=== PATIENT | male | born 1950 | race Caucasian/White ===

== ENCOUNTER 2016-07-20 19:04 | Emergency (ER) | payer OTHER, MEDICARE ==
[~2016-07-20] VITALS: Ht 177.8 cm; Wt 161.0 kg
[2016-07-20 19:05] VITALS: BP 163/89; PULSE 92; RESP 20; TEMP 97.6; O2SAT 94
[2016-07-20] MEDS ORDERED: HYDROcodone/ACETAMIN 10-325 MG TAB PO ONE (21:00)
[2016-07-20 22:08] VITALS: BP 153/88; PULSE 90; RESP 19; TEMP 97.6; O2SAT 95
== END 2016-07-20 22:08 | disposition home or self-care (01) ==
LOC: SED 19:04
DX: S22.32XA Fracture of one rib, left side, initial encounter for closed fracture (principal); R03.0 Elevated blood-pressure reading, without diagnosis of hypertension; V29.9XXA Motorcycle rider (driver) (passenger) injured in unspecified traffic accident, initial encounter; Y93.89 Activity, other specified; Y99.8 Other external cause status; Y92.89 Other specified places as the place of occurrence of the external cause
CPT/HCPCS: 71010; 71100; 99284

== ENCOUNTER 2017-01-21 05:24 | Inpatient (IN) | payer OTHER, MEDICARE ==
[2017-01-18 10:11] LABS: BILIRUBIN,URINE NEGATIVE (NEGATIVE); BLOOD, URINE NEGATIVE (NEGATIVE); CLARITY/URINE SL HAZY (CLEAR); COLOR,URINE YELLOW (YELLOW); GLUCOSE,URINE NEGATIVE (NEGATIVE); KETONES,URINE NEGATIVE (NEGATIVE); LEUKOCYTE ESTERASE ,URINE TRACE (NEGATIVE); NITRITE, URINE NEGATIVE (NEGATIVE); PROTEIN URINE NEGATIVE (NEGATIVE)
[2017-01-18 10:22] LABS: PROTHROMBIN TIME 10.7 SECS (9.5-12.5)
[2017-01-18 10:23] LABS: BASOPHILS % (AUTO) 0.7 % (0.0-2.0); EOSINOPHILS # (AUTO) 0.1 K/uL (0.0-0.4); EOSINOPHILS % (AUTO) 2.7 % (0.0-4.0); HEMATOCRIT 45.6 % (36-54); LYMPHOCYTES # (AUTO) 1.4 K/uL (1.0-5.5); LYMPHOCYTES % (AUTO) 27.3 % (20.5-51.5); MEAN CORPUSCULAR HEMOGLOBIN 31 pg (27-31); MEAN CORPUSCULAR HGB CONC 33 % (32-36); MEAN CORPUSCULAR VOLUME 95 fL (79.0-98.0); MONOCYTES # (AUTO) 0.5 K/uL (0.0-1.0); MONOCYTES % (AUTO) 9.2 % (1.7-9.3); NEUTROPHILS % (AUTO) 60.1 % (40.0-70.0); PLATELET COUNT (AUTO) 193 K/uL (130-430)
[2017-01-18 10:24] LABS: CALCIUM 9.4 mg/dL (8.4-11.0); POTASSIUM 3.5 mmol/L (3.5-5.1)
[2017-01-18 10:25] LABS: CREATININE 0.9 mg/dL (0.55-1.30)
[2017-01-18 11:02] LABS: BACTERIA,URINE FEW /HPF (None Seen); RBC,URINE 0-3 /HPF (0-3); WBC,URINE 0-3 /HPF (0-3)
[2017-01-18 11:03] LABS: CALCIUM OXALATE CRYSTALS,UR 0-10 /HPF (None Seen); MUCUS,URINE None Seen /LPF (None Seen)
[~2017-01-21] VITALS: Ht 180.3 cm; Wt 129.3 kg
[2017-01-21] MEDS ORDERED: CEFAZOLIN SOD 2 GM in D5W 50 ML IV ONE (06:00)
[2017-01-21] MEDS ORDERED: CEFAZOLIN 2 GM IVPB PREMIX 50 ML IV ONE (06:01)
[2017-01-21] MEDS ORDERED: ZOLP10TA2 PO (06:39)
[2017-01-21] MEDS ORDERED: PRAV40TA PO (06:39)
[2017-01-21] MEDS ORDERED: FINA5TAB3 PO (06:39)
[2017-01-21] MEDS ORDERED: ZALE10CA PO (06:39)
[2017-01-21] MEDS ORDERED: TRAZ-126 PO (06:39)
[2017-01-21] MEDS ORDERED: POLYMYXIN 500,000/BACIT.10,000 UNITS in NS IRR 1 L IR ONE (07:10)
[2017-01-21] MEDS ORDERED: LR 1,000 ML IV SCH (07:36)
[2017-01-21] MEDS ORDERED: NALBUPHINE HCL 10 MG/ML AMP IVP PRN (07:45)
[2017-01-21] MEDS ORDERED: HYDROmorphone 2 MG/ML VIAL IVP PRN ×2 (07:45)
[2017-01-21] MEDS ORDERED: MEPERIDINE HCL/PF 25 MG/ML DISP.SYRIN IVP PRN ×2 (07:45)
[2017-01-21] MEDS ORDERED: ONDANSETRON HCL 4 MG/2 ML VIAL IVP PRN ×2 (07:45)
[2017-01-21] MEDS ORDERED: HYDROmorphone 1 MG INJ. 1 MG/ML AMPUL IVP PRN ×2 (07:45→11:58)
[2017-01-21] MEDS ORDERED: DIPHENHYDRAMINE INJ 50 MG/ML VIAL IVP PRN (07:45)
[2017-01-21] MEDS ORDERED: KETOROLAC TROMETHAMINE 30 MG VIAL ONE (08:14)
[2017-01-21] MEDS ORDERED: ROPIVACAINE 0.2% 100 ML ONE ×2 (09:29→22:00)
[2017-01-21] MEDS ORDERED: D5/0.45 NS 1,000 ML IV ONE (10:03)
[2017-01-21] MEDS ORDERED: BISACODYL 10 MG/SUPPOSITORY RC PRN (10:15)
[2017-01-21] MEDS ORDERED: ACETAMINOPHEN 325 MG TABLET PO PRN (10:15)
[2017-01-21] MEDS: HYDROmorphone 1 MG INJ. 1 MG/ML AMPUL IVP PRN ×4 (10:15→10:35)
[2017-01-21] MEDS ORDERED: HYDROmorphone 1 MG INJ. 1 MG/ML AMPUL ONE ×2 (10:23→10:47)
[2017-01-21 11:30] VITALS: BP_SYST 134
--- NOTE | 2017-01-21 11:30 | NUR ---
Patient Received Awake, alert and oriented x4, states his pain level is rising, explained that medications are being verified by pharmacy and that as soon as medications are available they will be administered, patient and both verbalized understanding. Assessment complete, IV site is patent and infusing well. Neurovascular check: patient is able to move toes bilaterally, sensation felt on bilateral lower extremities, pedal pulses present, strong, and normal, capillary refill <3 seconds, patient denies numbness or tingling. SCD in place on right lower extremity, explained the purpose to this, patient verbalized understanding. Educated immersion metalcleaner light system and to call for any assistance, patient verbalized understanding, bed in lowest position, three side rails up, bed alarm on, fall and aspiration precautions in place. Addendum: 01/21/17 at 1628 by Willis Garcia RN Li catheter also in place, draining to gravity.
[2017-01-21 11:38] VITALS: BP_SYST 134
[2017-01-21] MEDS: ROPIVACAINE 0.2% 100 ML INJ SCH ×2 (12:00→22:00)
--- NOTE | 2017-01-21 12:10 | NUR ---
CON[facility]ULT [facility]DER [phone] S/W HUANG EXCHANGE @ 1210 Addendum: 01/22/17 at 0558 by Abelino Vega [place]/ cancelled consult s.w:shell
[2017-01-21] MEDS: MORPHINE SULFATE 10 MG/ML VIAL IM PRN ×2 (12:41→22:53)
--- NOTE | 2017-01-21 12:45 | NUR ---
RN Rounds/Pain medication Educated the patient on pain medication and potential side effects, and frequency, patient verbalized understanding and tolerated well at this time, no other needs at this time, bed in lowest position, three side rails up, bed alarm on, call light within reach, fall and aspiration precautions in place, will continue to monitor.
[2017-01-21 14:08] VITALS: BP_SYST 134
[2017-01-21] MEDS: CEFAZOLIN 1 GM IVPB PREMIX 50 ML IV SCH ×2 (15:10→21:43)
--- NOTE | 2017-01-21 15:10 | NUR ---
RN Rounds/Medication patient resting in bed, states mild but tolerable pain level at this time. Educated on need for IV antibiotics, IV site is patent and infusing well, no other needs at this time, bed in lowest position, three side rails up, bed alarm on, call light within reach, fall and aspiration precautions in place. Surgical dressing is in place over left knee, clean, dry and intact. Hemovac in place on left knee, draining to suction, will continue to monitor.
[2017-01-21 15:42] VITALS: BP_SYST 131
[2017-01-21] MEDS: RIVAROXABAN 10 MG TABLET PO SCH (17:01)
[2017-01-21] MEDS: HYDROcodone/ACETAMIN 7.5-325 MG TAB PO PRN (17:14)
--- NOTE | 2017-01-21 17:15 | NUR ---
RN Rounds/Pain Medication Patient resting in bed, awake, stated moderate pain level, educated on xarelto and pain medication and potential side effects, patient verbalized understanding and tolerated well. Emptied hemovac at this time, 220ml out, red drainage. No other needs at this time, bed in lowest position, three side rails up, bed alarm on, call light within reach.
--- NOTE | 2017-01-21 18:26 | NUR ---
Closing Note Patient resting in bed, awake, denies pain, eating dinner at this time, all needs met, no other needs at this time, bed in lowest position, three side rails up, bed alarm on, call light within reach, fall and aspiration precautions in place, will endorse report to NOC shift nurse.
--- NOTE | 2017-01-21 19:40 | NUR ---
INITIAL NOTE received report from day Nurse. Patient in bed, alert and oriented. Patient in pleasant mood. Denies pain. Hemovac red drainage, pt has femoral block, IV left arm intact. FC draining cyu. Safety precautions in place. call light within reach. Continue to monitor
[2017-01-21 20:22] VITALS: BP_SYST 103
--- NOTE | 2017-01-21 20:27 | NUR ---
page dr. parnell- dr. frazier traditional maori health practitioner. spoke to md. ask for order [id number] and trazadone 100mg md. agree. ask also to change consult for dr. hutson instead of dr. payton per pt request and consult for social work administrator. md agree. stated if dr. hutson didn't see pt markos. then dr. payton will be the consult.
[2017-01-21] MEDS: traZODone HCL 50 MG TABLET (DESYREL) PO SCH (20:44)
[2017-01-21] MEDS: ZOLPIDEM TARTRATE 5 MG TABLET PO PRN (21:43)
--- NOTE | 2017-01-21 22:07 | NUR ---
Medication note Pt antibiotic IV administered. No adverse effects noted. IV patent and surrounding area is intact. Pt denies pain at this time. Continue to monitor
--- NOTE | 2017-01-21 22:55 | NUR ---
Pain medication patient request pain medication. PRN morphine IM given. No adverse effect noted on site of administration. Side effects explained. Pt verbalizes understanding. Pt expresses need to go to sleep. Safety measures in place. Bed in lowest position. Call light within reach.
[2017-01-21 23:34] VITALS: BP_SYST 125
--- NOTE | 2017-01-22 00:51 | NUR ---
RN rounds Pt in bed sleeping. Bed in lowest position. Call light within reach
--- NOTE | 2017-01-22 02:11 | NUR ---
Round Pt in bed with eyes open. States he is not able to sleep states too much noise and movements from hallway. Patient request not to be disturbed again. Safety and fall precautions in place. Call light within reach
[2017-01-22 03:34] VITALS: BP_SYST 118
--- NOTE | 2017-01-22 04:19 | NUR ---
Rounds Pt in bed with eyes open. Pt VS taken all wnls. Pt assisted to locate his cell phone from the floor. Hemovac suctioning normally, draining red fluid. FC draining CYU. Patient request changes to FC and polar ice machine later so that he can try to sleep. SAfety precaution sin place. Call light within reach. Will continue to monitor
--- NOTE | 2017-01-22 05:30 | NUR ---
kishan cons: ,p left [phone] reason for cons: patient req
--- NOTE | 2017-01-22 05:39 | NUR ---
received call from dr. hutson- d reconcile medication and stated he will see pt today.
[2017-01-22] MEDS: MORPHINE SULFATE 10 MG/ML VIAL IM PRN ×3 (06:13→18:14)
--- NOTE | 2017-01-22 06:20 | NUR ---
Closing note Pt received PRN morphine for c/o of pain from incision site. Pt states he did not manage to sleep well this night due to noise from the hallway. Pt took his O2 nasal cannula on and off during the shift. Hemovac stayed intact this shift with red drainage. Pt FC intact draining CYU. IV on left hand patent and intact this shift. No injury noted this shift. Safety precautions and repositioning as scheduled. Will pass report to next shift
--- NOTE | 2017-01-22 07:46 | NUR ---
Nutrition Update Shane Scale 14 noted. Pt admitted for unilateral primary osteoarthritis, L knee. Diet: regular BMI: 39.7 kg/m2 RD to follow per nutrition care standards.
[2017-01-22 08:06] VITALS: BP_SYST 134
--- NOTE | 2017-01-22 08:14 | NUR ---
OPENING NOTE RECEIVED REPORT FROM NIGHT RN. PT IS AWAKE, ALERT, ORIENTED. ABLE TO EXPRESS NEEDS AND ASK FOR ASSISTANCE. NO DISTRESS OR SOB. VITAL SIGNS WITHIN NORMAL LIMITS. ASSESSMENT COMPLETE. OLIVER DRAINING TO GRAVITY. PT WITH POLAR CARE AND HEMOVAC IN PLACE. IV IS PATENT. CALL LIGHT WITHIN REACH, BED IN LOWEST POSITION. WILL CONTINUE TO MONITOR.
[2017-01-22] MEDS: HYDROcodone/ACETAMIN 7.5-325 MG TAB PO PRN ×3 (08:26→21:31)
[2017-01-22] MEDS: FINASTERIDE 5 MG TABLET (PROSCAR) PO SCH (09:46)
--- NOTE | 2017-01-22 10:00 | NUR ---
ROUNDS PT AMBULATED WITH PHYSICAL THERAPY. MEDS GIVEN. PT IN NO DISTRESS OR SOB AND HAS NO CURRENT COMPLAINTS. D/C TELE. CALL PAZ WITHIN REACH, BED IN LOWEST POSITION. WILL CONTINUE TO MONITOR.
--- NOTE | 2017-01-22 10:38 | NUR ---
Social Service Note: Pt referred to social worker aide by pt request; ENTERPRISE RESOURCE PLANNER met with pt at bedside. Pt was given SNF list prior to coming to hospital for L-TKA. Pt states that prior to his knee surgery he visited [facility] and would like to go there upon discharge from the hospital for short term rehabilitation. ENTERPRISE RESOURCE PLANNER completed DC plan assessment with pt. ENTERPRISE RESOURCE PLANNER has updated CM and DC senior buyer planner of pt's request for short term SNF placement.
[2017-01-22 12:00] VITALS: BP_SYST 128
--- NOTE | 2017-01-22 12:00 | NUR ---
ROUNDS PT AMBULATED WITH PHYSICAL THERAPY. PT HAS NO SIGNS OF DISTRESS OR SOB AND HAS NO COMPLAINTS. CALL PAZ WITHIN REACH. BED IN LOWEST POSITION. WILL CONTINUE TO MONITOR.
--- NOTE | 2017-01-22 13:44 | NUR ---
ROUNDS PT RESTING IN BED. COMPLAINED OF 7/10 LEFT LEG PAIN AND MORPHINE INJ WAS GIVEN. PT HAS NO SOB OR ANY OTHER DISTRESS OR COMPLAINTS. CALL PAZ WITHIN REACH, BED IN LOWEST POSITION. WILL CONTINUE TO MONITOR
[2017-01-22] MEDS: ROPIVACAINE 0.2% 100 ML INJ SCH (14:14)
--- NOTE | 2017-01-22 16:00 | NUR ---
ROUNDS PT RESTING IN BED. MEDICATION GIVEN FOR KNEE PAIN. PT IS STABLE WITH NO SIGNS OF DISTRESS OR SOB AND NO COMPLAINTS. CALL PAZ WITHIN REACH. BED IN LOWEST POSITION. WILL CONTINUE TO MONITOR.
--- NOTE | 2017-01-22 16:09 | NUR ---
PHYSICAL THERAPY CO-SIGN The Physical Therapy Progress Notes documented by It Audit Manager have been reviewed. I CONCUR W/SALES AND SERVICE ENGINEER AM AND PM NOTES; CONT PER TX PLAN Reviewed/Co-Signed by: Kay Zaragoza Documentation Done by: KISHORE KLINE PTA/ KAVITHA BROTHERS SALES AND SERVICE ENGINEER Addendum: 01/22/17 at 1611 by Kay Zaragoza PT Amended: Links added.
[2017-01-22 17:58] VITALS: BP_SYST 125
[2017-01-22] MEDS: RIVAROXABAN 10 MG TABLET PO SCH (17:59)
--- NOTE | 2017-01-22 18:31 | NUR ---
CLOSING PT RESTING IN BED COMFORTABLY. PT SHOWS NO S/S OF DISTRESS OR SOB. OLIVER DRAINING TO GRAVITY, HEMOVAC EMPTIED. IV INTACT AND PATENT. PT COMPLAINED OF LEFT CENTER KNEE PAIN THROUGHOUT SHIFT, MEDICATION GIVEN PRN. CALL PAZ WITHIN REACH, BED IN LOWEST POSITION. PT INSTRUCTED TO CALL IF NEEDS HELP. ALL NEEDS MET DURING SHIFT. WILL GIVE REPORT TO AIRPORT OPERATIONS DUTY MANAGER RN.
[2017-01-22 20:00] VITALS: BP_SYST 142
--- NOTE | 2017-01-22 20:00 | NUR ---
INITIAL NOTES: PT is awake and alert. lung sounds are clear.IVF infusing well on left hand with 2o gauge.Left knee replacement wound dressing intact,hemo-bag draining well ,no active bleeding.Both leg on SCDS. Neurovascular check are in normal limites,able to wiggle toes.encourage to use IS at least 10x per hour while awake,able to return the demonstrate up to 3000-4000ml.No c/o have pain. Routine medication is given.instructed to call for help.call light within reach.
[2017-01-22] MEDS: SIMVASTATIN 20 MG TABLET PO SCH (20:09)
[2017-01-22] MEDS: traZODone HCL 50 MG TABLET (DESYREL) PO SCH (20:09)
--- NOTE | 2017-01-22 22:00 | NUR ---
CPM REMOVE BY RN: PT willing to rest,request don't disturb him when he is sleep. CPM remove. Instruction to call if he need help.continue monitor.
[2017-01-22 23:40] VITALS: BP_SYST 124
--- NOTE | 2017-01-23 00:30 | NUR ---
RN ROUNDS: PT sleep without distress.No s/sx of pain.call light within reach,continue monitor.
--- NOTE | 2017-01-23 02:00 | NUR ---
RN ROUNDS: PT is sleeping well ,No s/sx of pain,NO distress of breathing.Change the Naropin bag.call light within reach, continue monitor.
[2017-01-23] MEDS: ROPIVACAINE 0.2% 100 ML INJ SCH ×2 (02:31→14:00)
--- NOTE | 2017-01-23 03:18 | NUR ---
RN ROUNDS: PT C/O difficulty sleep,and itchiness.medication is given.reposition pt in comfortable position.call light within reach continue monitor.
[2017-01-23 03:58] VITALS: BP_SYST 125
--- NOTE | 2017-01-23 04:29 | NUR ---
KYLAH NOTES: PT sleep well.NO complain of pain .The IV is patent. [facility] on.call light within reach,continue monitor. Addendum: 01/23/17 at 0532 by Murali Lind RN wrong time
--- NOTE | 2017-01-23 05:32 | NUR ---
RN NOTES: PT sleep well.NO complain of pain .The IV is patent. [facility] care on.call light within reach,continue monitor.
--- NOTE | 2017-01-23 06:11 | NUR ---
OLIVER CATHETER DISCONTINUED, PT TOLERATED WELL.CATH INTACT.
--- NOTE | 2017-01-23 06:28 | NUR ---
Closing Notes: Patient resting in bed, awake, denies pain.Li catheter are remove,encourage pt urine in the urinal. all needs met, no other needs at this time, bed in lowest position, three side rails up, bed alarm on, call light within reach, fall and aspiration precautions in place, will endorse report to day shift nurse.
[2017-01-23 06:33] LABS: BASOPHILS % (AUTO) 0.4 % (0.0-2.0); EOSINOPHILS # (AUTO) 0.1 K/uL (0.0-0.4); EOSINOPHILS % (AUTO) 1.3 % (0.0-4.0); HEMATOCRIT 34.3 % (36-54); HEMOGLOBIN 11.4 g/dL (14.0-18.0); LYMPHOCYTES # (AUTO) 1.2 K/uL (1.0-5.5); LYMPHOCYTES % (AUTO) 13.1 % (20.5-51.5); MEAN CORPUSCULAR HEMOGLOBIN 32 pg (27-31); MEAN CORPUSCULAR HGB CONC 33 % (32-36); MEAN CORPUSCULAR VOLUME 95 fL (79.0-98.0); MONOCYTES # (AUTO) 1.3 K/uL (0.0-1.0); MONOCYTES % (AUTO) 14.3 % (1.7-9.3); NEUTROPHILS # (AUTO) 6.3 K/uL (1.8-7.7); NEUTROPHILS % (AUTO) 70.9 % (40.0-70.0); PLATELET COUNT (AUTO) 149 K/uL (130-430); RED BLOOD CELL COUNT(AUTO) 3.61 MIL/uL (4.2-6.2); RED CELL DISTRIBUTION WIDTH 13.3 % (9.0-15.0); WHITE BLOOD COUNT (AUTO) 8.9 K/uL (4.8-10.8)
[2017-01-23] MEDS: MORPHINE SULFATE 10 MG/ML VIAL IM PRN ×2 (06:52→20:34)
[2017-01-23 06:54] LABS: ALBUMIN 2.8 g/dL (3.4-4.8); CALCIUM 8.6 mg/dL (8.4-11.0); CREATININE 0.83 mg/dL (0.55-1.30); PHOSPHORUS 2.4 mg/dL (2.7-4.5); POTASSIUM 3.6 mmol/L (3.5-5.1); TOTAL BILIRUBIN 0.7 mg/dL (0.0-1.0)
[2017-01-23 08:00] VITALS: BP_SYST 136
--- NOTE | 2017-01-23 08:00 | NUR ---
PATIENT AT REST, A/OX4. IV ON LEFT HAND, #20. DRESSING WILL BE CHANGED BY DR. DOSS. HEMOVAC IN PLACE, DRAINING SANGUINOUS EXUDATES. NO SIGNS OF DISTRESS NOTED. [facility]. CALL LIGHT IN PLACE, INSTRUCTED TO USE IT FOR NEEDS, BED LOCKED AT THE LOWEST POSITION, WILL CONTINUE TO MONITOR.
[2017-01-23] MEDS: FINASTERIDE 5 MG TABLET (PROSCAR) PO SCH (08:18)
--- NOTE | 2017-01-23 08:37 | NUR ---
DISCHARGE PLANNING Per patient request faxed SNF referral to [facility] [phone]. Will follow up. Addendum: 01/23/17 at 1017 by Yue Gomez DP Spoke with Kenny in admitting fax was received and patient accepted. Bed assignment will be given upon discharge order. CM will inform patient.
--- NOTE | 2017-01-23 10:28 | NUR ---
Discharge Planning Met with patient at bedside to discuss dc plan. Given Choice of Vendor Letter. Patient read and indicated that his preference for SNF is [facility]. Choice of Vendor letter was signed, witnessed and placed in patient chart.
--- NOTE | 2017-01-23 11:15 | NUR ---
PATIENT DRESSING IS SOAKED WITH BLOOD. DR. DOSS IS CALLED, AND INSTRUCTED TO REINFORCE DRESSING.
[2017-01-23 12:00] VITALS: BP_SYST 137
--- NOTE | 2017-01-23 12:25 | NUR ---
PATIENT IS EATING DINNER, NO SIGNS OF DISTRESS NOTED.
--- NOTE | 2017-01-23 14:40 | NUR ---
PATIENT AT REST, NO SIGNS OF DISTRESS NOTED. WILL CONTINUE TO MONITOR.
--- NOTE | 2017-01-23 16:10 | NUR ---
PHYSICAL THERAPY CO-SIGN The Physical Therapy Progress Notes documented by Portal Administrator have been reviewed. Reviewed/Co-Signed by: Emmie Ram, PT Documentation Done by: Alex Gomes PTA I concur with the PM documentation of this MACHINE CANDLE MOLDER. Plan: continue as per POC if patient remains to be in this hospital. Addendum: 01/24/17 at 0912 by Emmie Ram PT Amended: Links added.
--- NOTE | 2017-01-23 17:00 | NUR ---
PATIENT IS AT REST, NO SIGNS NOTED.
[2017-01-23 17:04] VITALS: BP_SYST 130
--- NOTE | 2017-01-23 18:30 | NUR ---
PATIENT IS EATING DINNER, NO SIGNS OF DISTRESS NOTED.
[2017-01-23] MEDS: RIVAROXABAN 10 MG TABLET PO SCH (19:38)
[2017-01-23 20:00] VITALS: BP_SYST 140
--- NOTE | 2017-01-23 20:00 | NUR ---
INITIAL NOTES: PT is awake and alert. lung sounds are clear.IVF infusing well on left hand with 2o gauge.Left knee replacement wound dressing intact,no active bleeding.Both leg on SCDS. Neurovascular check are in normal limites,able to wiggle toes.encourage to use IS at least 10x per hour while awake,able to return the demonstrate up to 3000-4000ml. Routine medication is given.instructed to call for help.call light within reach.
[2017-01-23] MEDS ORDERED: NAPH,MB-DB/K PH,MBDB 250 MG TAB PO ONE (20:15)
[2017-01-23] MEDS: SIMVASTATIN 20 MG TABLET PO SCH (20:33)
[2017-01-23] MEDS: traZODone HCL 50 MG TABLET (DESYREL) PO SCH (20:33)
--- NOTE | 2017-01-23 22:21 | NUR ---
RN NOTES: PATIENT AT REST, NO SIGNS OF DISTRESS NOTED. WILL CONTINUE TO MONITOR.
[2017-01-23 23:59] VITALS: BP_SYST 141
[2017-01-24] MEDS: ZOLPIDEM TARTRATE 5 MG TABLET PO PRN (00:12)
[2017-01-24] MEDS: HYDROcodone/ACETAMIN 7.5-325 MG TAB PO PRN (00:16)
--- NOTE | 2017-01-24 00:18 | NUR ---
RN NOTES: PT can't sleep.sleep medication given ,pain medication given.reposition pt.call light within reach,continue monitor.
--- NOTE | 2017-01-24 02:33 | NUR ---
PT sleep well after the medication is given. the door is close,turn off the light.call light within reach.continue monitor.
--- NOTE | 2017-01-24 04:14 | NUR ---
RN ROUNDS: PT want to urine.RN at bedside to assess the pt.call light within reach.continue monitor.
[2017-01-24 04:45] VITALS: BP_SYST 136
[2017-01-24] MEDS: ROPIVACAINE 0.2% 100 ML INJ SCH (05:54)
[2017-01-24] MEDS: MORPHINE SULFATE 10 MG/ML VIAL IM PRN (06:27)
--- NOTE | 2017-01-24 07:10 | NUR ---
Closing notes: Pt c/o pain.medication is given.IV infatuated,new iv insert. Pt is able to move around,no distress,no restless.report to day shift nurse.all needs are met.
[2017-01-24 07:13] LABS: BASOPHILS % (AUTO) 0.5 % (0.0-2.0); EOSINOPHILS # (AUTO) 0.1 K/uL (0.0-0.4); EOSINOPHILS % (AUTO) 1.4 % (0.0-4.0); HEMATOCRIT 33.5 % (36-54); HEMOGLOBIN 11.1 g/dL (14.0-18.0); LYMPHOCYTES # (AUTO) 1.3 K/uL (1.0-5.5); LYMPHOCYTES % (AUTO) 15.1 % (20.5-51.5); MEAN CORPUSCULAR HEMOGLOBIN 32 pg (27-31); MEAN CORPUSCULAR HGB CONC 33 % (32-36); MEAN CORPUSCULAR VOLUME 96 fL (79.0-98.0); MONOCYTES # (AUTO) 1.1 K/uL (0.0-1.0); MONOCYTES % (AUTO) 12.7 % (1.7-9.3); NEUTROPHILS # (AUTO) 6.1 K/uL (1.8-7.7); NEUTROPHILS % (AUTO) 70.3 % (40.0-70.0); PLATELET COUNT (AUTO) 156 K/uL (130-430); RED BLOOD CELL COUNT(AUTO) 3.49 MIL/uL (4.2-6.2); RED CELL DISTRIBUTION WIDTH 13.2 % (9.0-15.0); WHITE BLOOD COUNT (AUTO) 8.6 K/uL (4.8-10.8)
[2017-01-24 07:35] LABS: ALBUMIN 2.6 g/dL (3.4-4.8); CALCIUM 8.9 mg/dL (8.4-11.0); CREATININE 0.95 mg/dL (0.55-1.30); PHOSPHORUS 2.6 mg/dL (2.7-4.5); POTASSIUM 3.3 mmol/L (3.5-5.1); TOTAL BILIRUBIN 0.7 mg/dL (0.0-1.0)
--- NOTE | 2017-01-24 07:50 | NUR ---
INITIAL NOTE Received pt in bed, no s/s of distress or sob noted, pt has no c/o pain at this time, pt in stable condition, pt aaox4. Bed at lowest position, call light within reach, will continue to monitor pt for any changes. Iv catheter patent, no signs of infection or infiltration noted, noted that anesthesiologist came in and d/c the naropin during change of shift at 0730, night nurse wasted medication and removed tubing. Fall and aspiration precautions in place. Pt has a dressing on left knee, clean and dry, pt able to move toes, capillary refill less than 3 seconds, pulse present, sensation present, pt able to move toes, no paralysis or tingling per pt. Educated pt on use of incentive spirometer, pt to use 10 times an hour while awake, pt verbalized understanding, pt at 3200ml. Bed at lowest position, call light within reach, will continue to monitor pt for any changes. Fall precautions in place.
[2017-01-24 07:55] VITALS: BP_SYST 136
[2017-01-24 08:02] LABS: TOTAL IRON BIND. CAPACITY 129 ug/dL (250-450)
[2017-01-24] MEDS: FINASTERIDE 5 MG TABLET (PROSCAR) PO SCH (09:17)
--- NOTE | 2017-01-24 10:04 | NUR ---
Rounds Pt in bed, no s/s of distress or sob noted, pt has no c/o pain at this time, pt in stable condition, pt resting comfortably, will continue to monitor pt for any changes.
--- NOTE | 2017-01-24 11:05 | NUR ---
DISCHARGE PLANNING DC order to SNF. Spoke with Kenny in admitting at [facility] patient assigned to room 35A RN to report [phone] bed available anytime. KYLAH Hernandez made aware. Called [facility] [phone] spoke with Marco arranged BLS transport sweet pickle maker between 2-2:30pm. Placed transportation packet in nurses station.
--- NOTE | 2017-01-24 11:41 | NUR ---
CALLED ORTHO MD DR DOSS, RE: MED ORDER. SPOKE TO KURTIS
--- NOTE | 2017-01-24 11:50 | NUR ---
NEUROVASCULAR CHECK Pt has a dressing on left knee, clean and dry, pt able to move toes, capillary refill less than 3 seconds, pulse present, sensation present, pt able to move toes, no paralysis or tingling per pt.
[2017-01-24] MEDS ORDERED: POTASSIUM CHLORIDE 20 MEQ TAB.PRT.SR PO ONE (12:00)
[2017-01-24 12:54] VITALS: BP_SYST 137
[2017-01-24] MEDS ORDERED: POTASSIUM CHLORIDE 20 MEQ TAB.PRT.SR ONE (13:28)
[2017-01-24 14:14] VITALS: BP_SYST 132
--- NOTE | 2017-01-24 14:57 | NUR ---
PT TRANSFERRED Report given to Tru at [facility]. Transfer packet with Transfer Orders and Medication Reconciliation form given to EMT with report. Exitcare provided. [facility] ID band removed, replaced with ID band with pt's name and . IV catheter removed, intact and dressing applied, no active bleeding. All belongings sent with patient. Patient left floor via gurney escorted by EMT in no distress. Pt able to move toes on left knee, dressing clean and dry, no paralysis or tingling per pt, pulse palpable, sensation present, capillary refill less than 3 seconds.
== END 2017-01-24 14:57 | DRG 470 ==
LOC: SMU 05:24 → STU 14:59 → SMU 01-22 10:43
PROVIDERS: ADMIT Orthopaedic Surgery; ATTEND Orthopaedic Surgery
PROC: 0SRD0J9 Replacement of Left Knee Joint with Synthetic Substitute, Cemented, Open Approach (ICD-10-PCS; principal; 2017-01-21 07:30)
DX: M17.12 Unilateral primary osteoarthritis, left knee (principal); E83.39 Other disorders of phosphorus metabolism; E78.5 Hyperlipidemia, unspecified; E87.6 Hypokalemia; G47.00 Insomnia, unspecified; N40.0 Benign prostatic hyperplasia without lower urinary tract symptoms; Z96.651 Presence of right artificial knee joint; Z98.84 Bariatric surgery status
CPT/HCPCS: 36415; 71020-TC; 80048; 80053; 81000-TC; 83036; 83540-TC; 83550-TC; 83735-TC; 84100-TC; 85025; 85610-TC; 85730-TC; 87081; 88305; 88311; 93005; 94010; 97039; 97110-GP; 97116-GP; 97530-GP; C1713; C1776; J0690; J1170; J1200; J1885; J2270; J2795; J7050; J7120

== ENCOUNTER 2017-03-13 16:17 | Outpatient (CLI) | payer OTHER, MEDICARE ==
[~2017-03-13 16:17] MED LIST: FINA5TAB3 PO; PRAV40TA PO; TRAZ-126 PO; ZALE10CA PO; ZOLP10TA2 PO
== END 2017-03-13 20:48 | disposition home or self-care (01) ==
LOC: SRD 16:17
PROVIDERS: ATTEND Family Medicine
DX: R05 Cough (principal)
CPT/HCPCS: 71020-TC

== ENCOUNTER 2018-01-25 14:38 | Inpatient (IN) | payer OTHER, MEDICARE ==
[~2018-01-25] VITALS: Ht 180.3 cm; Wt 108.0 kg
[~2018-01-25 14:38] MED LIST changes: -ZALE10CA PO; +ZALE10CA28 PO
[2018-01-25 14:46] VITALS: BP_SYST 117
[2018-01-25] MEDS ORDERED: NACL 0.9% 1,000 ML IV ONE (15:30)
[2018-01-25 16:35] LABS: HEMATOCRIT 42.4 % (36-54); HEMOGLOBIN 14.2 g/dL (14.0-18.0); MEAN CORPUSCULAR HEMOGLOBIN 32 pg (27-31); MEAN CORPUSCULAR HGB CONC 33 % (32-36); MEAN CORPUSCULAR VOLUME 95 fL (79.0-98.0); RED BLOOD CELL COUNT(AUTO) 4.49 MIL/uL (4.2-6.2); WHITE BLOOD COUNT (AUTO) 6.4 K/uL (4.8-10.8)
[2018-01-25 16:36] LABS: BASOPHILS # (AUTO) 0.1 K/uL (0.0-0.2); BASOPHILS % (AUTO) 1.5 % (0.0-2.0); EOSINOPHILS # (AUTO) 0.1 K/uL (0.0-0.4); EOSINOPHILS % (AUTO) 1.4 % (0.0-4.0); MONOCYTES # (AUTO) 0.6 K/uL (0.0-1.0); MONOCYTES % (AUTO) 8.9 % (1.7-9.3); NEUTROPHILS # (AUTO) 4.5 K/uL (1.8-7.7); NEUTROPHILS % (AUTO) 72.2 % (40.0-70.0); PLATELET COUNT (AUTO) 170 K/uL (130-430); RED CELL DISTRIBUTION WIDTH 12.5 % (9.0-15.0)
[2018-01-25 16:40] LABS: PROTHROMBIN TIME 10.6 SECS (9.5-12.5)
[2018-01-25 16:45] LABS: ANION GAP 9 (5-15); CALCIUM 8.9 mg/dL (8.4-11.0); CHLORIDE 104 mmol/L (98-107); CREATININE 0.96 mg/dL (0.55-1.30); GLUCOSE 91 mg/dL (70-99); POTASSIUM 4.1 mmol/L (3.5-5.1); SODIUM SERUM 141 mmol/L (136-145); UREA NITROGEN, BLOOD 17 mg/dL (8-21)
[2018-01-25 16:53] LABS: ALANINE AMINOTRANSFERASE 19 U/L (12-78); ALBUMIN 3.4 g/dL (3.4-4.8); ASPARTATE AMINOTRANSFERASE 15 U/L (10-37); GFR AFRICAN AMERICAN 100 mL/min (>90); TOTAL BILIRUBIN 0.4 mg/dL (0.0-1.0)
[2018-01-25 16:54] LABS: ALCOHOL, BLOOD < 3 mg/dL (<10)
[2018-01-25 17:25] VITALS: BP_SYST 126
[2018-01-25] MEDS ORDERED: traMADol HCL HCL 50 MG TABLET (ULTRAM) PO PRN (17:45)
[2018-01-25] MEDS ORDERED: ACETAMINOPHEN 325 MG TABLET PO PRN (17:45)
[2018-01-25] MEDS ORDERED: HYDROcodone/ACETAMIN 5-325 MG TAB (NORCO/ VICODIN) PO PRN (17:45)
[2018-01-25] MEDS ORDERED: TRAM50TA2 PO (17:52)
[2018-01-25] MEDS ORDERED: ERGO500020 PO (17:52)
[2018-01-25 20:00] VITALS: BP_SYST 115
[2018-01-25] MEDS ORDERED: ZOLPIDEM TARTRATE 5 MG TABLET PO PRN (22:45)
[2018-01-25] MEDS ORDERED: traZODone HCL 50 MG TABLET (DESYREL) PO PRN (22:45)
[2018-01-26 06:27] LABS: BARBITURATE, URINE NEGATIVE (NEG <=200); BENZODIAZEPINE, URINE NEGATIVE (NEG <=150); CANNABINOID, URINE NEGATIVE (NEG <=50); COCAINE, URINE NEGATIVE (NEG <=150); METHAMPHETAMINES SCREEN,URINE NEGATIVE (NEG <=500); PHENCYCLIDINE SCREEN,URINE NEGATIVE (NEG <=25); UR TRICYCLIC ANTIDEPRESSANTS NEGATIVE (NEG <=300); URINE AMPHETAMINE NEGATIVE (NEG <=500); URINE METHADONE NEGATIVE (NEG <=200); URINE OXYCODONE SCREEN NEGATIVE (NEG <=100); URINE PROPOXYPHENE SCREEN NEGATIVE (NEG <=300)
[2018-01-26 06:28] LABS: OPIATE, URINE POSITIVE (NEG <=100)
[2018-01-26 06:33] LABS: BILIRUBIN,URINE NEGATIVE (NEGATIVE); BLOOD, URINE NEGATIVE (NEGATIVE); CLARITY/URINE CLEAR (CLEAR); COLOR,URINE YELLOW (YELLOW); GLUCOSE,URINE NEGATIVE (NEGATIVE); KETONES,URINE NEGATIVE (NEGATIVE); LEUKOCYTE ESTERASE ,URINE TRACE (NEGATIVE); NITRITE, URINE NEGATIVE (NEGATIVE); PH,URINE 5.5 (5.0-8.0); PROTEIN URINE NEGATIVE (NEGATIVE)
[2018-01-26 07:08] LABS: BACTERIA,URINE RARE /HPF (None Seen); MUCUS,URINE 1+ /LPF (None Seen); RBC,URINE 0-3 /HPF (0-3)
== END 2018-01-26 08:10 | disposition left against medical advice (07) | DRG 312 ==
LOC: SED 14:38 → STU 16:54
PROVIDERS: ADMIT Family Medicine; ATTEND Family Medicine
DX: R55 Syncope and collapse (principal); R00.1 Bradycardia, unspecified; E78.5 Hyperlipidemia, unspecified; N40.0 Benign prostatic hyperplasia without lower urinary tract symptoms; G47.00 Insomnia, unspecified; Z96.653 Presence of artificial knee joint, bilateral; F17.210 Nicotine dependence, cigarettes, uncomplicated; R73.01 Impaired fasting glucose; Z53.21 Procedure and treatment not carried out due to patient leaving prior to being seen by health care provider; Z79.899 Other long term (current) drug therapy; Z98.84 Bariatric surgery status; Z82.49 Family history of ischemic heart disease and other diseases of the circulatory system; Z83.3 Family history of diabetes mellitus
CPT/HCPCS: 36415; 70450-TC; 71045; 73564; 80053; 80307; 81000-TC; 84484; 85025; 85610-TC; 87086; 93005; 96360; 99285; G0482; J7030

== ENCOUNTER 2020-01-11 21:59 | Emergency (ER) | payer OTHER, MEDICARE ==
[~2020-01-11] VITALS: Ht 167.6 cm; Wt 108.9 kg
[~2020-01-11 21:59] MED LIST changes: +ERGO500020 PO; +TRAM50TA2 PO; -TRAZ-126 PO; +TRAZ-219 PO; -ZALE10CA28 PO
[2020-01-11 22:00] VITALS: BP_SYST 180
--- NOTE | 2020-01-11 22:00 | NUR ---
Patient triaged and placed in ER Chair H2 for evaluation. Dam Attendant chairside, pt in custody
--- NOTE | 2020-01-11 22:20 | NUR ---
ER at bedside examining patient.
--- NOTE | 2020-01-11 22:20 | NUR ---
Pt brought in by [facility] for medical clearance prior to booking. Pt has history of chronic hypertension and pacemaker. pt uncooperative. pt denies pain, chest pain, shortness of breath, any other medical complaint at this time. Pt ambulates with steady gait. Pt demonstrates no acute respiratory distress at this time, no guardingm, no grimacing. Pt uncooperative with additional medical line of questioning. Pt in custody
[2020-01-11] MEDS ORDERED: cloNIDine HCL 0.1 MG TABLET PO ONE (22:30)
--- NOTE | 2020-01-11 22:38 | NUR ---
Pt refused clonidine. informed on the risks and benefits by and myself. Pt refused meds.
[2020-01-11 22:40] VITALS: BP_SYST 174
--- NOTE | 2020-01-11 22:40 | NUR ---
Patient given written and verbal discharge instructions and verbalizes understanding. ER MD discussed with patient the results and treatment provided. Patient in stable condition. ID arm band removed. No IV, No Cath No RX given. Patient educated on pain management and to follow up with PMD. Pain Scale 0/10. Opportunity for questions provided and answered. Pt discharged in custody of [facility]. Pt cleared to Book
== END 2020-01-11 22:40 ==
LOC: SED 21:59
DX: Z02.89 Encounter for other administrative examinations (principal); I10 Essential (primary) hypertension; Z95.0 Presence of cardiac pacemaker; Z79.899 Other long term (current) drug therapy
CPT/HCPCS: 99283